=== PATIENT | male | born 2000 | race American Indian/Alaskan Native ===

== ENCOUNTER 2024-02-22 18:45 | Inpatient (IN) | payer OTHER ==
[2024-02-22 19:00] VITALS: BP 134/83; PULSE 79; RESP 18; TEMP 97.7
[2024-02-22] MEDS ORDERED: ONDANSETRON HCL 4 MG/2 ML VIAL IVP PRN (21:15)
[2024-02-22] MEDS: HEPARIN SODIUM,PORCINE 5,000 UNITS/ML VIAL SQ SCH (23:30)
[2024-02-23] MEDS: CEPHALEXIN MONOHYDRATE 500 MG CAPSULE PO SCH (00:20)
[2024-02-23] MEDS ORDERED: HALOPERIDOL LACTATE 5 MG/ML VIAL IM PRN (04:00)
[2024-02-23] MEDS: KETOCONAZOLE 2% 120 ML SHAMPOO TP SCH (08:41)
[2024-02-23] MEDS: DOCUSATE SODIUM 100 MG CAPSULE PO SCH (08:43)
[2024-02-23 19:45] VITALS: BP 122/72; PULSE 78; RESP 20; TEMP 98.4
[2024-02-24 05:46] VITALS: BP 107/62; PULSE 64; RESP 20; TEMP 97.6
[2024-02-24 08:53] VITALS: BP 107/76; PULSE 69; RESP 18
[2024-02-24 19:52] VITALS: BP 127/77; PULSE 69; RESP 18; TEMP 98.1
[2024-02-24] MEDS: ACETAMINOPHEN 325 MG TABLET PO PRN (20:22)
[2024-02-25 19:57] VITALS: BP 122/74; PULSE 70; RESP 18; TEMP 98.1
[2024-02-26 04:44] VITALS: BP 130/75; PULSE 58; RESP 18; TEMP 98
[2024-02-26 07:31] VITALS: BP 130/85; PULSE 67; RESP 18; TEMP 98.7
[2024-02-26 15:50] VITALS: BP 131/80; PULSE 62; RESP 18; TEMP 98.4
[2024-02-26 19:45] VITALS: BP 122/81; PULSE 72; RESP 18; TEMP 97.8
[2024-02-27 05:15] VITALS: BP 127/67; PULSE 58; RESP 18; TEMP 97.9
[2024-02-27 09:37] VITALS: BP 122/69; PULSE 75; RESP 18; TEMP 98.7
[2024-02-27 16:05] VITALS: BP 119/69; PULSE 71; RESP 18; TEMP 98.2
[2024-02-27 19:27] VITALS: BP 132/80; PULSE 86; RESP 18; TEMP 97.9
[2024-02-28 05:43] VITALS: BP 130/78; PULSE 65; RESP 18; TEMP 97.8
[2024-02-28 20:03] VITALS: BP 115/73; PULSE 91; RESP 18; TEMP 97.6
[2024-02-29 08:17] VITALS: BP 138/81; PULSE 73; RESP 18; TEMP 98.4
[2024-02-29 15:51] VITALS: BP 121/79; PULSE 97; RESP 18; TEMP 97.3
[2024-02-29 19:29] VITALS: BP 120/71; PULSE 76; RESP 18; TEMP 98.1
[2024-03-01 04:30] VITALS: BP 129/71; PULSE 69; RESP 18; TEMP 98
[2024-03-01 08:32] VITALS: BP 115/63; PULSE 60; RESP 19; TEMP 98
[2024-03-01 16:13] VITALS: BP 119/69; PULSE 74; RESP 19; TEMP 97.8
[2024-03-01 19:20] VITALS: BP 115/61; PULSE 64; RESP 19; TEMP 98
[2024-03-02 20:08] VITALS: BP 122/64; PULSE 74; RESP 18; TEMP 98.1
[2024-03-03 06:29] VITALS: BP 120/76; PULSE 61; RESP 18; TEMP 97.7
[2024-03-03 08:10] VITALS: BP 123/65; PULSE 70; RESP 19; TEMP 97.7
[2024-03-03 15:29] VITALS: BP 108/64; PULSE 67; RESP 18; TEMP 98.4
[2024-03-03 20:00] VITALS: BP 123/65; PULSE 64; RESP 18; TEMP 98.5
[2024-03-04 05:00] VITALS: BP 126/60; PULSE 68; RESP 18; TEMP 97.8
[2024-03-04 07:36] VITALS: BP 133/85; PULSE 62; RESP 18; TEMP 98.2
[2024-03-04 15:58] VITALS: BP 129/58; PULSE 68; RESP 18; TEMP 98
[2024-03-05 15:14] VITALS: BP 116/68; PULSE 73; RESP 19; TEMP 98.4
[2024-03-05 19:25] VITALS: BP 124/69; PULSE 70; RESP 18; TEMP 98.1
[2024-03-06 07:35] VITALS: BP 123/72; PULSE 67; RESP 18; TEMP 97.6
[2024-03-06 15:57] VITALS: BP 115/62; PULSE 79; RESP 18; TEMP 98.5
[2024-03-06 20:15] VITALS: BP 108/69; PULSE 90; RESP 18; TEMP 98
[2024-03-07 23:48] VITALS: BP 128/80; PULSE 85; RESP 18; TEMP 97.4
[2024-03-08 15:23] VITALS: BP 135/74; PULSE 80; RESP 20; TEMP 98
== END 2024-03-08 19:13 | disposition left against medical advice (07) | DRG 605 ==
LOC: 6N 18:45
PROVIDERS: ADMIT Internal Medicine; ATTEND Internal Medicine
PROC: GZ51ZZZ Individual Psychotherapy, Behavioral (ICD-10-PCS; principal; 2024-02-23)
DX: S61.211A Laceration without foreign body of left index finger without damage to nail, initial encounter (principal); F84.0 Autistic disorder; R45.851 Suicidal ideations; F20.0 Paranoid schizophrenia; Z53.21 Procedure and treatment not carried out due to patient leaving prior to being seen by health care provider; X58.XXXA Exposure to other specified factors, initial encounter; F20.9 Schizophrenia, unspecified; Z91.148 Patient's other noncompliance with medication regimen for other reason; Y93.89 Activity, other specified; Y92.89 Other specified places as the place of occurrence of the external cause; Y99.8 Other external cause status
CPT/HCPCS: J1630; J1644; Z7610